=== PATIENT | female | born 2000 | race American Indian/Alaskan Native ===

== ENCOUNTER 2019-06-14 10:21 | Emergency (ER) | payer OTHER ==
--- NOTE | 2019-06-14 10:47 | Emergency Department Report ---
ED Female HPI - General Chief complaint: Urogenital-Female Stated complaint: 35WKS /DISCHARGE/ITCHING Time Seen by Provider: 06/14/19 10:44 Source: patient Mode of arrival: Ambulatory Limitations: No Limitations - History of Present Illness Initial comments: Patient is a 18-year-old female who presents the emergency room with complaints of white vaginal discharge began 2 weeks ago. She has associated vaginal itching, dysuria, vaginal irritation. She states she used Monistat 7 which helped but did not completely resolve. she states she is currently 35 weeks . Patient states that her GERMAN TUTOR is in [place], [place] and she just moved to [place] and does not have an GERMAN TUTOR here. she denies any abd pain or vag bleeding. The patient states this is her first . She denies any past medical history or allergies to medications. - Related Data Allergies Allergy/AdvReac Type Severity Reaction Status Date / Time No Known Allergies Allergy Unverified 06/14/19 10:24 ED Review of Systems ROS: Stated complaint: 35WKS /DISCHARGE/ITCHING Other details as noted in HPI Comment: All other systems reviewed and negative ED Past Medical Hx - Past Medical History Previous Medical History?: No - Surgical History Past Surgical History?: No - Social History Smoking Status: Never Smoker Substance Use Type: None ED Physical Exam - General Limitations: No Limitations General appearance: alert, in no apparent distress - Head Head exam: Present: atraumatic, normocephalic - Eye Eye exam: Present: normal appearance - ENT ENT exam: Present: mucous membranes moist - Respiratory Respiratory exam: Present: normal lung sounds bilaterally. Absent: respiratory distress, wheezes, rales, rhonchi, stridor, accessory muscle use, decreased breath sounds, prolonged expiratory - Cardiovascular Cardiovascular Exam: Present: regular rate, normal rhythm, normal heart sounds. Absent: systolic murmur, diastolic murmur, rubs, gallop - GI/Abdominal GI/Abdominal exam: Present: soft, normal bowel sounds. Absent: distended, tenderness, guarding, rebound, rigid - External exam: Present: normal external exam. 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 Absent: erythema, vaginal bleeding, foreign body, tissue, laceration Bi-manual exam: Present: normal bi-manual exam. Absent: cervical motion te ndernes, adnexal tenderness, adnexal mass - Neurological Exam Neurological exam: Present: alert, oriented X3 - Psychiatric Psychiatric exam: Present: normal affect, normal mood - Skin Skin exam: Present: warm, dry ED Course Vital Signs 06/14/19 06/14/19 06/14/19 10:26 10:41 12:42 Temperature 97.5 F L Pulse Rate 82 80 Respiratory 18 18 16 Rate Blood Pressure 115/77 Blood Pressure 118/80 [Left] O2 Sat by Pulse 100 98 100 Oximetry ED Medical Decision Making - Medical Decision Making Patient is a 18-year-old female who presents the emergency room with complaints of white vaginal discharge began 2 weeks ago. She has associated vaginal itching, dysuria, vaginal irritation. She states she used Monistat 7 which helped but did not completely resolve. she states she is currently 35 weeks . Patient states that her GERMAN TUTOR is in [place] and she just moved to [place] and does not have an GERMAN TUTOR here. she denies any abd pain or vag bleeding. The patient states this is her first . She denies any past medical history or allergies to medications. vitals are normal. UA is normal. wet prep is normal. G/C sent. on pelvic exam very small amount of white vaginal discharge cervical os is closed, no abd tenderness, no evidence of PID. advised pt to please follow up with an GER[employer] T[employer]OR in the next 2-3 days for further evaluation and management. check back with medical records in 1 week for results for your test. return to the emergency room for any new or worsening symptoms. - Differential Diagnosis related discharge, STD, vaginitis, yeast, BV, trichomonas, UTI Critical care attestation.: If time is entered above; I have spent that time in minutes in the direct care of this critically ill patient, excluding procedure time. ED Disposition Clinical Impression: Vaginal discharge Disposition: - TO HOME OR SELFCARE Is pt being admited?: No Does the pt Need Aspirin: No Condition: Stable Instructions: Vaginitis (ED) Additional Instructions: please follow up with an [employer] T[employer]OR in the next 2-3 days for further evaluation and management. check back with medical records in 1 week for results for your test. return to the emergency room for any new or worsening symptoms. Referrals: STEPHANIE LOPEZ MD [Primary Care Provider] - 2-3 Days CATRACHO GUY MD [Staff Physician] - 2-3 Days Time of Disposition: 12:13 Print Language: BULGARIAN
[2019-06-14 11:17] LABS: Bilirubin,Urine NEG (Negative); Blood,Urine NEG (Negative); Color,Urine Yellow (Yellow); Mucus,Urine FEW /HPF; Protein,Urine <15 mg/dL mg/dL (Negative); Urobilinogen,Urine < 2.0 mg/dL (<2.0)
[2019-06-14 11:27] LABS: HCG Qualitative,Urine Positive (Negative)
[2019-06-14 12:43] VITALS: BP 118/80
== END 2019-06-14 12:42 | disposition home or self-care (01) ==
LOC: ED 10:21
DX: O26.893 Other specified pregnancy related conditions, third trimester (principal); N89.8 Other specified noninflammatory disorders of vagina; Z3A.35 35 weeks gestation of pregnancy
CPT/HCPCS: 81001; 81025; 87210; 87591